=== PATIENT | male | born 1985 | race Two or more races ===

== ENCOUNTER 2024-06-25 14:17 | Emergency (ER) | payer OTHER, SELFPAY ==
[2024-06-25 14:23] VITALS: BP 105/64; PULSE 68; RESP 20; TEMP 36.9; O2SAT 18
--- NOTE | 2024-06-25 14:28 | EKG_ITS ---
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
--- NOTE | 2024-06-25 14:28 | XR_ITS ---
Examination: AP lateral chest 2 views Technique: Upright AP lateral chest 2 views Exam date and time: June 25, 2024 at 1440 hrs. Indications: Onset chest pain today. Findings: No significant cardiac enlargement No pneumonia or pulmonary edema The osseous structures are intact Impression: No pneumonia or pulmonary edema
--- NOTE | 2024-06-25 14:28 | PD.EDRME ---
Rapid Medical Screening Exam RME Arrival date/time: 06/25/24 14:17 39-year-old male presents to the emergency department complaints of left-sided chest pain intermittently for the last month Chief Complaint: Chest Pain Time Seen by Provider: 06/25/24 14:18
[2024-06-25 15:10] LABS: Basophils # (Auto) 0.1 Thou/mm3 (0.0-0.2); Basophils % (Auto) 1 % (0-2.5); Eosinophils # (Auto) 0.3 Thou/mm3 (0.0-0.5); Eosinophils % (Auto) 4 % (0-10); Hematocrit 38.4 % (41.0-53.0); Hemoglobin 12.9 g/dL (13.5-16.0); Immature Granulocytes % (Auto) 0 % (0-0); Immature Granulocytes Auto 0.02 Thou/mm3 (0.00-0.00); Lymphocytes # (Auto) 2.5 Thou/mm3 (1.0-4.8); Lymphocytes % (Auto) 33 % (10-50); Mean Corpuscular HGB Conc 33.6 g/dl (31.0-37.0); Mean Corpuscular Hemoglobin 28.6 pg (25.0-35.0); Mean Corpuscular Volume 85 fL (80-100); Monocytes # (Auto) 0.8 Thou/mm3 (0.0-0.8); Monocytes % (Auto) 10 % (0-12); Neutrophils # (Auto) 3.8 Thou/mm3 (1.8-7.7); Neutrophils % (Auto) 51 % (37-80); Nucleated Red Blood Cell % 0 /100 WBC (0); Platelet Count 372 Thou/mm3 (140-440); RDW Standard Deviation 38.2 fL (35.1-43.9); Red Blood Count 4.51 Miln/mm3 (4.50-5.90); White Blood Count 7.5 Thou/mm3 (3.8-10.6)
[2024-06-25 15:26] LABS: Amphetamine/Methamp Scrn,U Negative (Negative); Barbiturate Screen,Urine Negative (Negative); Benzodiazepines Screen,Urine Negative (Negative); Benzoylecgonine Screen, Ur Negative (Negative); Fentanyl Screen,Urine Negative (Negative); Opiate Screen,Urine Negative (Negative); THC Screen,Urine Negative (Negative)
[2024-06-25 15:29] LABS: Alanine Aminotransferase 28 U/L (10-49); Albumin, Serum 3.9 gm/dL (3.5-5.0); Albumin/Globulin Ratio 1.3 (1.2-2.2); Alkaline Phosphatase 76 U/L (46-116); Anion Gap 4 (7-16); Aspartate Amino Transferase 14 U/L (0-34); BUN/Creatinine Ratio 12 Ratio (12-20); Bilirubin,Total 0.4 mg/dL (0.3-1.2); Blood Urea Nitrogen 12 mg/dL (9-23); Calcium 8.7 mg/dL (8.3-10.6); Calcium (Corrected) 8.8 mg/dL (8.5-10.1); Carbon Dioxide 28.4 mMol/L (20.0-31.0); Chloride 107 mMol/L (98-107); Glucose 73 mg/dL (74-106); Osmolality,Calculated 276 (275-295); Potassium 3.5 mMol/L (3.4-5.1); Sodium 139 mMol/L (136-145); Total Protein 6.9 gm/dL (5.7-8.2); Troponin I < 0.020 ng/mL (0.0-0.045); eGFR > 60 See Note
[2024-06-25 15:34] LABS: B-Type Natriuretic Peptide < 20 pg/mL (0-100)
--- NOTE | 2024-06-25 17:22 | EDNOTE_ITS ---
<Statement entered by Yoly Alejandra MD - 06/25/24 17:36> As co-signing physician, I was present and available for consult prn. I concur with the plan and care as documented by the midlevel provider. ED General RME/HPI General Chief complaint: Chest Pain Stated complaint: LEFT SIDED CHEST PAIN RAD TO BACK Time Seen by Provider: 06/25/24 14:18 Arrival date/time: 06/25/24 14:17 CC: Left-sided chest pain, that radiates to the back onset at noon today. Intermittent episodes over the last month spontaneous resolution was seen by PCP for the same thing but is told that there is nothing they can do about it. The patient denies nausea vomiting shortness of breath difficulty breathing does not say whether pain is increased with cough or sneeze. Patient denies fever chills shortness of breath or difficulty breathing. Pain is mostly subsided by the time of the assessment. RME / HPI RME / HPI narrative: 06/25/24 14:17 39-year-old male presents to the emergency department complaints of left-sided chest pain intermittently for the last month Related Data Allergies Allergy/AdvReac Type Severity Reaction Status Date / Time No Known Allergies Allergy Verified 06/25/24 14:20 Review of Systems Review of Systems Narrative Review of Systems: GEN: No fever, no chills, no weight loss EYES: No discharge, no visual changes, no pain HEENT: No ear pain, no congestion, no sore throat PULM: No shortness of breath, no cough, no congestion CV: + chest pain, no dyspnea on exertion, no palpitations GI: No nausea, no vomiting, no diarrhea, no pain, no constipation : No frequency, no urgency, no dysuria MUSC/SKEL: No joint pain, no back pain SKIN: No rash PSYCH: No hallucinations, no depression HEME/LYMPH: No easy bleeding or bruising tendencies NEURO: No weakness, no headache Past Medical History Social History SMOKING STATUS: Never smoker ED Exam Narrative Physical exam: [General: Not in any acute distress Head normocephalic HEENT: Within acceptable limits Neck is supple nontender Chest equal chest rise mild tenderness to palpation the left lateral chest midaxillary line nonradiating. Respiratory: Clear to auscultation no wheezes crackles or rubs CV: Rate rhythm is regular no murmurs rubs or clicks Abdomen is distended secondary to body habitus soft nontender no masses positive bowel sounds all 4 quadrants Back: No CVA tenderness no spinous process tenderness from cervical spine thoracic and lumbar spine Skin: No rash ecchymosis or markings to the anterior chest. Otherwise skin is intact no petechiae rash induration ulceration or crepitus Extremities: Moving all extremity against resistance cap refill less than 2 seconds neurosensory intact Neuro: Awake alert oriented x3 Glascow coma 15 no focal deficits] Course Quality Measures none Orders Category Date Time Status EKG (ED ONLY) *Do not use* NOW Care 06/25/24 14:28 Completed EKG (ED Only) Stat Exams 06/25/24 14:28 Draft XR chest 2V Stat Exams 06/25/24 14:28 Completed BNP [B-Type Natriuretic Peptide] Stat Lab 06/25/24 14:47 Completed CBC Stat Lab 06/25/24 14:47 Completed Comprehensive Metabolic Panel Stat Lab 06/25/24 14:47 Completed Drug Screen,Urine Stat Lab 06/25/24 15:09 Completed Troponin I Stat Lab 06/25/24 14:47 Completed Vital Signs Vital signs: Vital Signs Temperature 98.4 F 06/25/24 14:23 Pulse Rate 68 06/25/24 14:23 Respiratory Rate 20 06/25/24 14:23 Blood Pressure 105/64 06/25/24 14:23 Pulse Oximetry (%) 18 L 06/25/24 14:23 Oxygen Delivery Method Room Air 06/25/24 14:23 [facility] Patient data External records reviewed:: [facility] previous records Clinical information provided by:: patient Social determinants that could affect healthcare access:: none Patient has the following chronic illnesses:: None How is presenting disease/condition affected by chronic disease/condition?: u neffected by Evaluation data The following diagnostics were reviewed and interpreted by me:: lab results and radiology exam(s) Lab and/or radiology exams considered but not ordered:: Chest x-ray is negative for any acute finding requires emergent or immediate intervention CBC shows no acute leukocytosis anemia thrombocytopenia CMP shows no acute electrolyte imbalances renal impairment transaminitis or T. bili elevation Troponin is negative UDS is negative EKG performed at 1438 shows ventricular rate of 61 NC interval 152 QRS of 89 QTc of 376 is normal sinus rhythm. Interpretation Summary: Chest wall pain versus spasm Medications Medications considered but not ordered:: None Medication administrations:: None Consultations Consultation(s) initiated? (list below): No Diagnosis Differential Diagnosis ED Complaint MDM: Pneumonia ACS NC Most likely diagnosis given after review of the tests above:: Chest wall spasm Admission Indicated Admission indicated?: not indicated Explain why admission is indicated or not indicated:: Stable for outpatient follow-up Admission Request Was there a request for admission?: No Disposition Plan Disposition Plan: Discharge Discharge Attestation Discharge Attestation: The patient and all family members were given an opportunity to ask questions and understood the discharge instructions. Discharge instructions specifically effects, indications for sooner follow up or return to the emergency department, and the expected course of current diagnosis. Patient condition: Stable Medical Decision Making Differential Diagnosis Differential Diagnosis: Pneumonia ACS NC Lab Data 06/25/24 14:47 06/25/24 14:47 Labs: Lab Results 06/25/24 06/25/24 Range/Units 14:47 15:09 WBC 7.5 (3.8-10.6) Thou/mm3 RBC 4.51 (4.50-5.90) Miln/mm3 Hgb 12.9 L (13.5-16.0) g/dL Hct 38.4 L (41.0-53.0) % MCV 85 (80-100) fL MCH 28.6 (25.0-35.0) pg MCHC 33.6 (31.0-37.0) g/dl RDW Std Deviation 38.2 (35.1-43.9) fL Plt Count 372 (140-440) Thou/mm3 Neut % (Auto) 51 (37-80) % Lymph % (Auto) 33 (10-50) % [place] % (Auto) 10 (0-12) % Eos % (Auto) 4 (0-10) % Baso % (Auto) 1 (0-2.5) % Neut # (Auto) 3.8 (1.8-7.7) Thou/mm3 Lymph # (Auto) 2.5 (1.0-4.8) Thou/mm3 [place] # (Auto) 0.8 (0.0-0.8) Thou/mm3 Eos # (Auto) 0.3 (0.0-0.5) Thou/mm3 Baso # (Auto) 0.1 (0.0-0.2) Thou/mm3 Immature Gran # (Auto) 0.02 H (0.00-0.00) Thou/mm3 Absolute Nucleated RBC 0.00 (0.00-0.00) Thou/mm3 Immature Gran % 0 (0-0) % Nucleated RBC % 0 (0) /100 WBC Sodium 139 (136-145) mMol/L Potassium 3.5 (3.4-5.1) mMol/L Chloride 107 (98-107) mMol/L Carbon Dioxide 28.4 (20.0-31.0) mMol/L Anion Gap 4 L (7-16) BUN 12 (9-23) mg/dL Creatinine 1.0 (0.6-1.3) mg/dL Estim Creat Clear Calc Not Performed. eGFR > 60 (60 - ) See Note BUN/Creatinine Ratio 12 (12-20) Ratio Glucose 73 L (74-106) mg/dL Calculated Osmolality 276 (275-295) Calcium 8.7 (8.3-10.6) mg/dL Corrected Calcium 8.8 (8.5-10.1) mg/dL Total Bilirubin 0.4 (0.3-1.2) mg/dL AST 14 (0-34) U/L ALT 28 (10-49) U/L Alkaline Phosphatase 76 (46-116) U/L Troponin I < 0.020 (0.0-0.045) ng/mL B-Natriuretic Peptide < 20 (0-100) pg/mL Total Protein 6.9 (5.7-8.2) gm/dL Albumin 3.9 (3.5-5.0) gm/dL Globulin 3.0 (2.3-3.5) gm/dL Albumin/Globulin Ratio 1.3 (1.2-2.2) Urine Opiates Screen Negative (Negative) Urine Fentanyl Screen Negative (Negative) Ur Barbiturates Screen Negative (Negative) U Amphetamin/Meth Scrn Negative (Negative) U Benzodiazepines Scrn Negative (Negative) U Cocaine Metab Screen Negative (Negative) U Marijuana (THC) Screen Negative (Negative) Discharge Plan Plan Patient Disposition: HOME (Self Care) Patient condition on transfer: Stable Prescriptions/Referrals Referrals: Keyon Young PA-C [Primary Care Provider] - In 1 week Problem List Clinical Impression: Chest wall pain Patient/Caregiver Discharge Instructions Other Activity Instructions:: Please write down any of the pertinent facts about the chest wall pain when it starts when it ends what you are doing beforehand what helped it go away as this will give a history of how long this has been going on and maybe help you find a specialist to can figure out what is happening. This also may be stress-induced. Particularly that it started on the right side now is travel to the left. Education Materials: ED Chest Pain, Noncardiac Print Language: Ukrainian Stand Alone Forms: Nancy Award Info., Patient Portal Info Letter, Work/School Release PA/VETERINARY PRACTICE MANAGER Supervising Physician PA/VETERINARY PRACTICE MANAGER Supervising Physician: Andrew De Luna ENP
== END 2024-06-25 18:03 | disposition home or self-care (01) ==
PROVIDERS: Nurse Practitioner Primary Care; Emergency Provider Emergency Medicine; PCP Physician Assistant
DX: R07.89 Other chest pain (principal); R94.31 Abnormal electrocardiogram [ECG] [EKG]
CPT/HCPCS: 36415; 71046; 80053; 80307; 83880; 84484; 85025; 93005; 99283